=== PATIENT | male | born 1975 | race Caucasian/White ===

== ENCOUNTER 2018-12-05 20:17 | Emergency (ER) | payer BC ==
[~2018-12-05] VITALS: Ht 175.3 cm; Wt 105.0 kg
[~2018-12-05 20:17] MED LIST: BACITUD TOP; CEPH-443 PO; IBUP800T48 PO
[2018-12-05 20:29] VITALS: BP 140/75; PULSE 111; RESP 20; Ht 175.3 cm; Wt 105.0 kg
[2018-12-05] MEDS ORDERED: DIPHTH/TET/ACEL PERTUSS (ADULT) 0.5 ML VIAL IM* ONE (22:30)
[2018-12-05] MEDS ORDERED: CEPHALEXIN 500 MG CAP PO ONE (22:30)
[2018-12-05] MEDS ORDERED: BACITRACIN 0.9 GM OINT TOP ONE (22:30)
[2018-12-05] MEDS ORDERED: HYDROCODONE/APAP (10/325) TAB PO ONE (22:30)
[2018-12-05] MEDS ORDERED: BACITRACIN 0.5%/ZINC 28.35 GM OINT TOP ONE (23:00)
== END 2018-12-05 23:28 | disposition home or self-care (01) ==
LOC: FTE 20:17
DX: S50.811A Abrasion of right forearm, initial encounter (principal); S80.811A Abrasion, right lower leg, initial encounter; F17.210 Nicotine dependence, cigarettes, uncomplicated; V18.4XXA Pedal cycle driver injured in noncollision transport accident in traffic accident, initial encounter
CPT/HCPCS: 90715; Z7610; 90471